=== PATIENT | female | born 1955 | race Caucasian/White ===

== ENCOUNTER → 2022-06-13 | Outpatient (CLI) | payer OTHER | END | disposition home or self-care (01) | LOC: RADMN 12:35 | PROVIDERS: ATTEND Internal Medicine Cardiovascular Disease | DX: I63.511 Cerebral infarction due to unspecified occlusion or stenosis of right middle cerebral artery (principal); J34.89 Other specified disorders of nose and nasal sinuses | CPT/HCPCS: 70551 ==